=== PATIENT | male | born 2000 | race Caucasian/White ===

== ENCOUNTER 2018-07-19 20:18 | Inpatient (IN) ==
--- NOTE | 2018-07-20 00:17 | ED ---
HPI General Chief complaint: Abdominal Pain Stated complaint: ABD Pain Time Seen by Provider: 07/19/18 23:56 Source: patient Limitations: no limitations History of Present Illness HPI narrative: The patient is a 17 year old male who presents to the [facility] emergency department with a history of having abdominal pain that began on Wednesday. The patient reports that the pain is in the mid epigastric area. The patient reports that he tried taking Pepto-Bismol without any relief. He reports that he had nausea and vomiting on Wednesday associated with this. He reports that he has had 2 episodes of diarrhea. He denies having any blood in his stool or black or tarry stools. He denies having any known sick contacts, foreign travel, or recent antibiotic use. He reports that the pain is a cramping sensation. He reports that initially was coming and going, however now it is constant. He reports that it feels like a tightening sensation today that is gradually getting worse with time. He reports that it is worse with movement. He reports having decreased appetite. He denies having any change in the pain with eating. The patient reports having a subjective fever associated with this. On review of systems otherwise, he denies having any cough, congestion, neck pain, chest pain, shortness of breath, urinary symptoms , or neurologic symptoms. Related Data Home Medications Medication Instructions Recorded Confirmed No Known Home Medications 07/20/18 07/20/18 Previous Rx's Medication Instructions Recorded hydrocodone-acetaminophen [[place]] 1 tab PO Q4H PRN #18 tab 07/21/18 Allergies Allergy/AdvReac Type Severity Reaction Status Date / Time milk Allergy Constipatio Verified 07/19/18 20:57 n Penicillins Allergy Shortness Verified 07/19/18 20:57 of Breath Review of Systems ROS: all other systems reviewed are negative [facility] Medical History Medical History Patient denies medical problems (Acute) Social History Social History Substance History: No History of Abuse Second Hand Smoke Exposure: No Smoking Status: Never smoker How Often Do You Have a Drink Containing Alcohol: 2 to 4 times a month Hx Recent Travel: No Recent Travel in [facility] within the Last 8 Weeks: No Recent Out of Country Travel within the Last 8 Weeks: No Immunization History Tetanus Immunization: Unsure Exam Const General: cooperative, no acute distress and well developed Nutritional Appearance: well nourished Orientation: alert, awake and oriented x3 HENMS Head: normocephalic and atraumatic Nose: no nasal discharge and no epistaxis Mouth: moist mucous membranes Throat: posterior oropharynx normal and uvula midline Eyes Sclera: normal sclerae Pupils: PERRL Neck Neck: no meningeal signs, trachea midline and no JVD Resp Effort & Inspection: no use of accessory muscles Auscultation: clear to auscultation bilaterally Cardio Rate: tachycardic (Sinus tachycardia with a rate in the low 100s, no pulse deficits to the extremities on simultaneous auscultation and palpation of his radial artery.) Rhythm: regular rhythm Heart Sounds: no gallops, no murmurs and no rubs GI Inspection: non-distended Palpation: soft, no hepatosplenomegaly, no guarding, not rigid and tender in the epigastrum and in the RUQ; not in the LLQ, not in the RLQ, not in the LUQ, not periumbilically, not suprapubicly, Asencio's sign negative and with no rebound tenderness Back/Spine/Pelvis Back: no CVA tenderness Skin General: dry skin (warm) Neuro General: alert, awake and oriented x3 Cranial Nerves: other Speech: speech normal Motor: no movement abnormalities noted Extrem General: normal to inspection, no clubbing, no cyanosis and no edema Psych Mood: congruent mood Affect: normal affect Judgment: judgment good Course Reevaluation(s) Reevaluation #1: The patient was reexamined and his pain was controlled. He was updated regarding his results. I explained that the imaging was suspicious for an acute cholecystitis. I explained that he would be admitted for consultation with the surgeon. Consultations Consultation #1: The patient's case including history, pertinent physical examination findings, and laboratory studies were discussed with Dr. Sim. It was agreed that the patient would be admitted to the hospitalist service. Consultation #2: The patient's case including history, pertinent physical examination findings, and laboratory studies were discussed with Dr. Nair, the general surgeon records section supervisor. He explained that he would see the patient in consultation. Initial Documented Vital Signs Temperature 99.6 F 07/19/18 20:52 Pulse Rate 100 H 07/19/18 20:52 Respiratory Rate 16 07/19/18 20:52 Blood Pressure 144/65 H 07/19/18 20:52 Pulse Oximetry 99 07/19/18 20:52 Last Documented Vital Signs Temperature 98.3 F 07/21/18 00:00 Pulse Rate 67 07/21/18 00:00 Respiratory Rate 18 07/21/18 00:00 Blood Pressure 109/59 L 07/21/18 00:00 Pulse Oximetry 95 07/21/18 00:00 Medical Decision Making MDM Narrative Medical decision making narrative: During the course of the patient's emergency department visit, the patient's history, examination, and differential diagnosis were reviewed with the patient. The patient was placed on a business transformation analyst with oximetry and frequent blood pressure monitoring. The patient had IV access obtained and blood work sent for analysis. A diagnostic evaluation was started regarding the patient's abdominal pain. The patient was initially provided Normal saline IV fluids. The patient's diagnostic studies are remarkable for a white count of 8.9, hemoglobin 15.6, platelets 151 74.6 neutrophils, chemistries are remarkable for a glucose of 117, elevated C-reactive protein at 16.6, lipase within normal limits. Urinalysis showed no acute abnormality. PT 11.6, PTT 32.7, CT scan of the abdomen and pelvis revealed findings suspicious for acute cholecystitis. A call was placed out to the surgeon on-call, regarding this patient's case. The patient was provided antibiotic to include Levaquin and Flagyl given his penicillin allergy. The patient's results were discussed with the patient, including the plan of care. I explained that further testing and/ or monitoring is indicated based on the patient's history, examination, and/ or laboratory findings. Therefore, I recommended admission for additional evaluation. The patient expressed understanding and was agreeable with this plan. The patient was admitted to the hospital in stable condition and sent to a bed under the care of [facility] services. Medical Screen Exam Complete: Yes Emergency Medical Condition: Yes Differential Diagnosis Differential Diagnosis: Viral syndrome, versus gastritis, versus peptic ulcer disease, versus pancreatitis, versus gastroenteritis, versus colitis, versus appendicitis, versus pyelonephritis, versus urinary tract infection Medical Records Medical records reviewed: Yes I reviewed the patient's medical records. Lab Data Lab results reviewed: Yes I reviewed the patient's lab results. Result diagrams: 07/21/18 05:47 09/06/18 05:47 Lab Results 07/20/18 07/20/18 07/20/18 Range/Units 00:35 00:45 00:45 WBC 8.9 (4.0-11.0) th/mm3 RBC 4.67 (4.50-5.90) mil/mm3 Hgb 15.6 (13.0-17.0) gm/dL Hct 42.9 (39.0-51.0) % MCV 91.9 (80.0-100.0) fL MCH 33.5 (27.0-34.0) pg MCHC 36.5 H (32.0-36.0) % RDW 12.5 (11.6-17.2) % Plt Count 151 (150-450) th/mm3 MPV 9.3 (7.0-11.0) fL Prelim Diff (Auto) Slide review pending Neut % (Auto) 74.6 H (16.0-70.0) % Lymph % (Auto) 14.4 (9.0-44.0) % [place] % (Auto) 9.4 H (0.0-8.0) % Eos % (Auto) 1.4 (0.0-4.0) % Baso % (Auto) 0.2 (0.0-2.0) % Neut # (Auto) 6.6 (1.8-7.7) th/mm3 Lymph # (Auto) 1.3 (1.0-4.8) th/mm3 [place] # (Auto) 0.8 (0.0-0.9) th/mm3 Eos # (Auto) 0.1 (0.0-0.4) th/mm3 Baso # (Auto) 0.0 (0.0-0.2) th/mm3 WBC Differential . Diff Scan Auto diff confirmed Differential Comment . Platelet Estimate Normal (Normal) Platelet Morphology Normal (Normal) RBC Morphology Normal (Normal) PT 11.3 (9.8-11.6) sec INR 1.1 Ratio APTT 32.7 H (24.3-30.1) sec Sodium (136-145) meq/L Potassium (3.5-5.1) meq/L Chloride (98-107) meq/L Carbon Dioxide (21.0-32.0) meq/L Anion Gap (5-15) meq/L BUN (7-18) mg/dL Creatinine (0.60-1.30) mg/dL Estimated GFR (>89) mL/min Random Glucose (74-106) mg/dL Calcium (8.5-10.1) mg/dL Total Bilirubin (0.2-1.0) mg/dL AST (15-39) U/L ALT (9-52) U/L Alkaline Phosphatase (45-117) U/L C-Reactive Protein (0.00-0.30) mg/dL Total Protein (6.4-8.2) g/dL Albumin (3.4-5.0) g/dL Lipase (73-393) U/L Urine Color Straw (Yellw/Straw) Urine Clarity Clear (Clear) Urine pH 6.0 (5.0-8.5) Ur Specific [place] 1.004 (1.002-1.035) Urine Protein Negative (Neg-Trace) mg/dL Urine Glucose (UA) Negative (Negative) mg/dL Urine Ketones Trace H (Negative) mg/dL Urine Occult Blood Negative (Negative) Urine Nitrate Negative (Negative) Urine Bilirubin Negative (Negative) Urine Urobilinogen Less than 2 (Less than 2) mg/dL Ur Leukocyte Esterase Negative (Negative) Urine RBC Less than 1 (0-3) /hpf Urine WBC Less than 1 (0-5) /hpf Micro UA Comment Culture not ind Ur Microscopic Review Not Reportable Urine Culture Comments Culture not ind 07/20/18 07/21/18 07/21/18 Range/Units 00:45 05:47 05:47 WBC 8.4 (4.0-11.0) th/mm3 RBC 3.92 L (4.50-5.90) mil/mm3 Hgb 13.0 D (13.0-17.0) gm/dL Hct 35.7 L (39.0-51.0) % MCV 91.0 (80.0-100.0) fL MCH 33.0 (27.0-34.0) pg MCHC 36.3 H (32.0-36.0) % RDW 12.3 (11.6-17.2) % Plt Count 152 (150-450) th/mm3 MPV 9.7 (7.0-11.0) fL Prelim Diff (Auto) Slide review pending Neut % (Auto) 81.2 H (16.0-70.0) % Lymph % (Auto) 8.8 L (9.0-44.0) % [place] % (Auto) 9.8 H (0.0-8.0) % Eos % (Auto) 0.0 (0.0-4.0) % Baso % (Auto) 0.2 (0.0-2.0) % Neut # (Auto) 6.8 (1.8-7.7) th/mm3 Lymph # (Auto) 0.7 L (1.0-4.8) th/mm3 [place] # (Auto) 0.8 (0.0-0.9) th/mm3 Eos # (Auto) 0.0 (0.0-0.4) th/mm3 Baso # (Auto) 0.0 (0.0-0.2) th/mm3 WBC Differential . Diff Scan Auto diff confirmed Differential Comment . Platelet Estimate (Normal) Platelet Morphology (Normal) RBC Morphology (Normal) PT (9.8-11.6) sec INR Ratio APTT (24.3-30.1) sec Sodium 137 141 (136-145) meq/L Potassium 3.8 4.2 (3.5-5.1) meq/L Chloride 100 105 (98-107) meq/L Carbon Dioxide 27.2 24.5 (21.0-32.0) meq/L Anion Gap 10 12 (5-15) meq/L BUN 8 8 (7-18) mg/dL Creatinine 0.96 0.73 (0.60-1.30) mg/dL Estimated GFR Greater than 89 Greater than 89 (>89) mL/min Random Glucose 117 H 100 (74-106) mg/dL Calcium 9.1 8.8 (8.5-10.1) mg/dL Total Bilirubin 0.9 0.5 (0.2-1.0) mg/dL AST 16 50 H (15-39) U/L ALT 19 47 (9-52) U/L Alkaline Phosphatase 54 53 (45-117) U/L C-Reactive Protein 16.60 H (0.00-0.30) mg/dL Total Protein 8.2 6.5 D (6.4-8.2) g/dL Albumin 3.9 3.0 L D (3.4-5.0) g/dL Lipase 78 (73-393) U/L Urine Color (Yellw/Straw) Urine Clarity (Clear) Urine pH (5.0-8.5) Ur Specific [place] (1.002-1.035) Urine Protein (Neg-Trace) mg/dL Urine Glucose (UA) (Negative) mg/dL Urine Ketones (Negative) mg/dL Urine Occult Blood (Negative) Urine Nitrate (Negative) Urine Bilirubin (Negative) Urine Urobilinogen (Less than 2) mg/dL Ur Leukocyte Esterase (Negative) Urine RBC (0-3) /hpf Urine WBC (0-5) /hpf Micro UA Comment Ur Microscopic Review Urine Culture Comments Imaging Data Radiologist's impression: Abdomen/Pelvis CT 07/20/18 00:33 CONCLUSION: 1. Abnormal gallbladder with findings highly suggestive of acute cholecystitis. The gallbladder contains stones and demonstrates wall thickening and pericholecystic inflammation and likely hyperemia in the adjacent liver. The inflammatory changes also abut the proximal transverse colon causing mild wall thickening. 2. There is trace free fluid in the pelvis. Discharge Plan Discharge Disposition Patient Disposition: 30 Still Patient Discharge Details Diagnosis: Acute cholecystitis Physicians Team ED Provider: Dorie Gill Primary Care Provider: Primary Care Windy Lawson Attending Provider: Dre Sullivan Other Providers: Hair Myers ; [facility] Inter[facility] Interventions: ED Discharge Assessment Last Done: 07/20/18 05:16 Status ED Status: Left Department Discharge Information Discharge Date/Time: 07/20/18 05:50
[2018-07-20] MEDS ORDERED: Sod Chloride 0.9% Inj 1,000 ML IV.SIG ONE (00:35)
[2018-07-20 00:59] LABS: Baso % (Auto) 0.2 % (0.0-2.0); Eos # (Auto) 0.1 th/mm3 (0.0-0.4); Eos % (Auto) 1.4 % (0.0-4.0); Hematocrit 42.9 % (39.0-51.0); Hemoglobin 15.6 gm/dL (13.0-17.0); Lymph # (Auto) 1.3 th/mm3 (1.0-4.8); Lymph % (Auto) 14.4 % (9.0-44.0); Mean Corpuscular Hemoglobin 33.5 pg (27.0-34.0); Mean Corpuscular Volume 91.9 fL (80.0-100.0); Mean Platelet Volume 9.3 fL (7.0-11.0); Mono # (Auto) 0.8 th/mm3 (0.0-0.9); Mono % (Auto) 9.4 % (0.0-8.0); Neut # (Auto) 6.6 th/mm3 (1.8-7.7); Neut % (Auto) 74.6 % (16.0-70.0); Platelet Count 151 th/mm3 (150-450); Red Blood Count 4.67 mil/mm3 (4.50-5.90); Red Cell Distribution Width 12.5 % (11.6-17.2); White Blood Count 8.9 th/mm3 (4.0-11.0)
[2018-07-20 01:03] LABS: Mean Corpuscular HGB Conc 36.5 % (32.0-36.0)
[2018-07-20 01:17] LABS: Activated Partial Thrombo Time 32.7 sec (24.3-30.1); INR 1.1 Ratio; Prothrombin Time 11.3 sec (9.8-11.6)
[2018-07-20 01:21] LABS: Alanine Aminotransferase 19 U/L (9-52); Albumin 3.9 g/dL (3.4-5.0); Anion Gap 10 meq/L (5-15); Aspartate Aminotransferase 16 U/L (15-39); Blood Urea Nitrogen 8 mg/dL (7-18); Calcium 9.1 mg/dL (8.5-10.1); Carbon Dioxide 27.2 meq/L (21.0-32.0); Chloride 100 meq/L (98-107); Glomerular Filtration Rate Greater Than 89 mL/min (>89); Glucose,Random 117 mg/dL (74-106); Lipase 78 U/L (73-393); Potassium 3.8 meq/L (3.5-5.1); Sodium 137 meq/L (136-145)
[2018-07-20 01:23] LABS: Alkaline Phosphatase 54 U/L (45-117); Total Protein 8.2 g/dL (6.4-8.2)
[2018-07-20] MEDS ORDERED: Ketorolac Inj 30 MG/ML (IVP) Vial IV.PUSH ONE ×2 (01:29→13:00)
[2018-07-20 01:48] LABS: Platelet Estimate Normal (Normal); Platelet Morphology Normal (Normal); RBC Morphology Normal (Normal)
[2018-07-20 01:54] LABS: Bilirubin,Urine Negative (Negative); Clarity,Urine Clear (Clear); Color,Urine Straw (Yellw/Straw); Glucose,Urine (UA) Negative (Negative); Leukocyte Esterase,Urine Negative (Negative); Nitrite,Urine Negative (Negative); Specific Gravity,Urine 1.004 (1.002-1.035)
--- NOTE | 2018-07-20 02:02 | CT ---
EXAM DATE: 07/20/2018 1:53 AM EDT AGE/SEX: 17 years / Male INDICATIONS: Abdomen pain past 4 days. CLINICAL DATA: This is the patient's initial encounter. Patient reports that signs and symptoms have been present for 1 day and indicates a pain score of 6/10. MEDICAL/SURGICAL HISTORY: None. None. ORAL CONTRAST: No oral contrast ingested. RADIATION DOSE: 6.64 CTDI (mGy) COMPARISON: No prior exams available for comparison. TECHNIQUE: Multiple contiguous axial images were obtained through the abdomen and pelvis following b olus infusion of 96 ml Omnipaque 350 (iohexol) nonionic water-soluble contrast as a single exam dos e. No oral contrast ingested. Using automated exposure control and adjustment of the mA and/or kV ac cording to patient size, radiation dose was kept as low as reasonably achievable to obtain optimal di agnostic quality images. DICOM format image data is available electronically for review and comparis on. FINDINGS: Lower chest: No acute abnormality is identified. Hepatobiliary: No focal liver lesion is identified. Hepatic vasculature demonstrates no abnormality. Gallbladder is distended and contains calcified and noncalcified stones. There is gallbladder wall th ickening and mild inflammation in the pericholecystic fat. Inflammation also abuts the proximal trans verse colon. There is no bile duct dilatation. There is mild hyperemia in the liver adjacent to the i nflamed gallbladder. Kidneys: No hydronephrosis, stone, or mass. Adrenal Glands: Within normal limits. Spleen: Within normal limits. Pancreas: Within normal limits. Vascular: The aorta is nonaneurysmal. Bowel/Mesentery: Stomach and small bowel demonstrate no abnormality. Appendix is normal. There is que stionable mild wall thickening of the proximal transverse colon where it abuts the inflamed gallbladd er. There is no free air. Trace free fluid is present in the pelvis. Abdominal Wall: No hernia is visualized. Retroperitoneum: No lymphadenopathy. Bladder: No wall thickening or mass. Reproductive: Within normal limits. Inguinal: No lymphadenopathy or hernia. Musculoskeletal: No acute osseous abnormality is identified. CONCLUSION: 1. Abnormal gallbladder with findings highly suggestive of acute cholecystitis. The gallbladder cont ains stones and demonstrates wall thickening and pericholecystic inflammation and likely hyperemia in the adjacent liver. The inflammatory changes also abut the proximal transverse colon causing mild wa ll thickening. 2. There is trace free fluid in the pelvis. Electronically signed by: Jeet Sloan MD 07/20/2018 2:00 AM EDT
[2018-07-20] MEDS ORDERED: Bisacodyl 10 MG Supp RECTAL PRN (04:39)
[2018-07-20] MEDS: Sod Chloride 0.9% Inj 1,000 ML IV.CONT SCH ×2 (04:55→14:55)
--- NOTE | 2018-07-20 08:09 | P.HP ---
History of Present Illness Primary Care Physician: No Primary Care Physician Inpatient Certification: I certify that the inpatient services were ordered in accordance with Medicare regulations governing the order. This includes certification that hospital inpatient services are reasonable and necessary and in the case of services not specified as inpatient-only under 42 CFR 419.22(n), that they are appropriately provided as inpatient services in accordance to with the 2-midnight benchmark under 43 CFR 412.3(e) Estimated Total Length of Stay (Days): 2 Plans for Post Hospital Care: Home [facility] - History History Provided By: Patient - Medical History Medical History: Medical History (Last Reviewed 07/20/18 @ 01:26 by Dorie Gill MD) Patient denies medical problems - Tobacco History Second Hand Smoke Exposure: No Smoking Status: Never smoker - Alcohol History How Often Do You Have a Drink Containing Alcohol: Monthly or less - Substance Use History Substance History: No History of Abuse - Travel History Recent Travel in the [place] Within the Last 8 Weeks: No Recent Travel Out of the Country Within the Last 8 Weeks: No - Immunization History Tetanus Immunization: Unsure Medications and Allergies Active Medications: Active Medications Al Hydroxide/Mg Hydroxide (Milk Of Magnesia Liq) 30 ml PO Q12H PRN PRN Reason: Mild Constipation Bisacodyl (Dulcolax Supp) 10 mg RECTAL DAILY PRN PRN Reason: SEVERE CONSITIPATION Levofloxacin/Dextrose (Levaquin 750 Mg Premix Inj) 150 mls @ 100 mls/hr IV.SIG Q24H GHISLAINE Metronidazole/Sodium Chloride (Flagyl 500 Mg Inj) 100 mls @ 100 mls/hr IV.SIG Q8H GHISLAINE Sodium Chloride (Ns Inj) 1,000 mls @ 100 mls/hr IV.CONT .Q10H [facility] Last Admin: 07/20/18 04:55 Dose: 100 mls/hr Lactulose (Lactulose Liq) 30 ml PO DAILY PRN PRN Reason: SEVERE CONSITIPATION Morphine Sulfate (Morphine Inj) 4 mg IV.PUSH Q4H PRN PRN Reason: pain 6-10 Ondansetron HCl (Zofran Inj) 4 mg IV.PUSH Q6H PRN PRN Reason: NAUSEA OR VOMITING Senna/Docusate Sodium (Ya-Colace) 1 tab PO BID GHISLAINE Sennosides (Senokot) 17.2 mg PO Q12H PRN PRN Reason: Moderate Constipation Sodium Chloride (Ns Flush) 2 ml IV.FLUSH PRN PRN PRN Reason: FLUSH AFTER USING IV ACCESS Allergies Allergy/AdvReac Type Severity Reaction Status Date / Time milk Allergy Constipatio Verified 07/19/18 20:57 n Penicillins Allergy Shortness Verified 07/19/18 20:57 of Breath Home Medications Medication Instructions Recorded Confirmed Type No Known Home Medications 07/20/18 07/20/18 History Exam Vital signs: Vital Signs 07/19/18 20:52 07/20/18 04:50 07/20/18 05:53 Temperature 99.6 F 99.9 F H Pulse Rate 100 H 79 70 Respiratory Rate 16 18 22 Blood Pressure 144/65 H 114/58 L 113/57 L Pulse Oximetry 99 96 98 07/20/18 07:44 Temperature 99.2 F Pulse Rate 71 Respiratory Rate 20 Blood Pressure 119/56 L Pulse Oximetry 99 Intake & Output 07/19/18 07/20/18 07/20/18 18:59 06:59 18:59 Intake Total 250 / 250 Balance 250 / 250 Weight 77.4 kg Intake: IV 250 / 250 Levaquin 750 mg Premix Inj 150 150 / 150 ML @ 100 mls/hr IV.SIG ONCE ONE Rx#:[id number] NS Inj 1,000 ML @ Wide Open IV. 0 / 0 SIG BOLUS ONE Rx#:[id number] Flagyl 500 MG Inj 100 ML @ 100 100 / 100 mls/hr IV.SIG ONCE ONE Rx#: [id number] Other: Date of Last Bowel Movement 07/19/18 Results - Labs CBC & Chem 7: 07/20/18 00:45 07/20/18 00:45 Labs: Laboratory Results - last 24 hr 07/20/18 07/20/18 07/20/18 00:35 00:45 00:45 WBC 8.9 RBC 4.67 Hgb 15.6 Hct 42.9 MCV 91.9 MCH 33.5 MCHC 36.5 H RDW 12.5 Plt Count 151 MPV 9.3 Prelim Diff (Auto) Slide review pending Neut % (Auto) 74.6 H Lymph % (Auto) 14.4 [place] % (Auto) 9.4 H Eos % (Auto) 1.4 Baso % (Auto) 0.2 Neut # (Auto) 6.6 Lymph # (Auto) 1.3 [place] # (Auto) 0.8 Eos # (Auto) 0.1 Baso # (Auto) 0.0 WBC Differential . Diff Scan Auto diff confirmed Differential Comment . Platelet Estimate Normal Platelet Morphology Normal RBC Morphology Normal PT 11.3 INR 1.1 APTT 32.7 H Sodium Potassium Chloride Carbon Dioxide Anion Gap BUN Creatinine Estimated GFR Random Glucose Calcium Total Bilirubin AST ALT Alkaline Phosphatase C-Reactive Protein Total Protein Albumin Lipase Urine Color Straw Urine Clarity Clear Urine pH 6.0 Ur Specific [place] 1.004 Urine Protein Negative Urine Glucose (UA) Negative Urine Ketones Trace H Urine Occult Blood Negative Urine Nitrate Negative Urine Bilirubin Negative Urine Urobilinogen Less than 2 Ur Leukocyte Esterase Negative Urine RBC Less than 1 Urine WBC Less than 1 Micro UA Comment Culture not ind Ur Microscopic Review Not Reportable Urine Culture Comments Culture not ind 07/20/18 00:45 WBC RBC Hgb Hct MCV MCH MCHC RDW Plt Count MPV Prelim Diff (Auto) Neut % (Auto) Lymph % (Auto) [place] % (Auto) Eos % (Auto) Baso % (Auto) Neut # (Auto) Lymph # (Auto) [place] # (Auto) Eos # (Auto) Baso # (Auto) WBC Differential Diff Scan Differential Comment Platelet Estimate Platelet Morphology RBC Morphology PT INR APTT Sodium 137 Potassium 3.8 Chloride 100 Carbon Dioxide 27.2 Anion Gap 10 BUN 8 Creatinine 0.96 Estimated GFR Greater than 89 Random Glucose 117 H Calcium 9.1 Total Bilirubin 0.9 AST 16 ALT 19 Alkaline Phosphatase 54 C-Reactive Protein 16.60 H Total Protein 8.2 Albumin 3.9 Lipase 78 Urine Color Urine Clarity Urine pH Ur Specific [place] Urine Protein Urine Glucose (UA) Urine Ketones Urine Occult Blood Urine Nitrate Urine Bilirubin Urine Urobilinogen Ur Leukocyte Esterase Urine RBC Urine WBC Micro UA Comment Ur Microscopic Review Urine Culture Comments - Imaging Impressions Abdomen/Pelvis CT 07/20/18 00:33 CONCLUSION: 1. Abnormal gallbladder with findings highly suggestive of acute cholecystitis. The gallbladder contains stones and demonstrates wall thickening and pericholecystic inflammation and likely hyperemia in the adjacent liver. The inflammatory changes also abut the proximal transverse colon causing mild wall thickening. 2. There is trace free fluid in the pelvis. Caprini VTE Risk Assessment Caprini Risk Assessment Model: Point Value = 1 Point Value = 2 Point Value = 3 Point Value = 5 Age 41-60 Minor surgery BMI > 25 kg/m2 Swollen legs Varicose veins or History of unexplained or recurrent spontaneous Oral contraceptives or hormone replacement Sepsis (< 1 month) Serious lung disease, including pneumonia (< 1 month) Abnormal pulmonary function Acute myocardial infarction Congestive heart failure (< 1 month) History of inflammatory bowel disease Medical patient at bed rest Age 61-74 Arthroscopic surgery Major open surgery (> 45 min) Laparoscopic surgery (> 45 min) Malignancy Confined to bed (> 72 hours) Immobilizing plaster cast Central venous access Age >= 75 History of VTE Family history of VTE Factor V Leiden Prothrombin 58030A Lupus anticoagulant Anticardiolipin antibodies Elevated serum homocysteine Heparin-induced thrombocytopenia Other congenital or acquired thrombophilia Stroke (< 1 month) Elective arthroplasty Hip, pelvis, or leg fracture Acute spinal cord injury (< 1 month) Prophylaxis Regimen: Total Risk Factor Score Risk Level Prophylaxis Regimen 0-1 Low Early ambulation 2 Moderate Order ONE of the following: *Sequential Compression Device (SCD) *Heparin 5000 units SQ BID 3-4 Higher Order ONE of the following medications: *Heparin 5000 units SQ TID *Enoxaparin/Lovenox 40 mg SQ daily (WT < 150 kg, CrCl > 30 mL/min) *Enoxaparin/Lovenox 30 mg SQ daily (WT < 150 kg, CrCl > 10-29 mL/min) *Enoxaparin/Lovenox 30 mg SQ BID (WT < 150 kg, CrCl > 30 mL/min) AND/OR *Sequential Compression Device (SCD) 5 or more Highest Order ONE of the following medications: *Heparin 5000 units SQ TID (Preferred with Epidurals) *Enoxaparin/Lovenox 40 mg SQ daily (WT < 150 kg, CrCl > 30 mL/min) *Enoxaparin/Lovenox 30 mg SQ daily (WT < 150 kg, CrCl > 10-29 mL/min) *Enoxaparin/Lovenox 30 mg SQ BID (WT < 150 kg, CrCl > 30 mL/min) AND *Sequential Compression Device (SCD)
[2018-07-20] MEDS: Senna/Docusate Sodium 8.6/50 MG Tablet PO SCH ×2 (08:32→22:00)
--- NOTE | 2018-07-20 08:44 | P.HP ---
History of Present Illness Primary Care Physician: No Primary Care Physician Chief Complaint: Abdominal pain, nausea, vomiting History of Present Illness: This patient is a 17 y/o male with no known significant past medical history. He presented to our emergency department last night with complaints of abdominal pain that began three days ago. He initially had nausea and vomiting. He denies seeing any blood in the vomit. He denies any recent consumption of food that was our of his ordinary routine. He also had diarrhea for two days following his initial symptoms. He denies melenic stools or noticing any blood in the stool. He also had subjective fevers, no chills. After no resolution of his symptoms he came into our emergency department last night. - Diagnosis (1) Acute cholecystitis Inpatient Certification: I certify that the inpatient services were ordered in accordance with Medicare regulations governing the order. This includes certification that hospital inpatient services are reasonable and necessary and in the case of services not specified as inpatient-only under 42 CFR 419.22(n), that they are appropriately provided as inpatient services in accordance to with the 2-midnight benchmark under 43 CFR 412.3(e) Estimated Total Length of Stay (Days): 2 Plans for Post Hospital Care: Home Review of Systems All other systems reviewed negative except as stated in HPI Cardiovascular: Denies chest pain, Denies chest pain at rest, Denies chest pain with activity, Denies excessive sweating, Denies fainting, Denies fast heart rate, Denies foot swelling, Denies generalized swelling, Denies irregular heart rhythm, Denies leg pain with activity, Denies leg sores, Denies leg swelling, Denies lightheadedness, Denies radiating jaw, neck or arm pain, Denies rapid, pounding, or irregular heartbeat, Denies shortness of breath, Denies shortness of breath with activity, Denies shortness of breath when lying down, Denies shortness of breath causing sudden awakening, Denies slow heart rate, Denies other Respiratory: Denies change in phlegm color, Denies chest congestion, Denies cough, Denies coughing up blood, Denies excessive phlegm production, Denies pain on inspiration, Denies pain with cough, Denies shortness of breath, Denies shortness of breath with activity, Denies snoring, Denies stridor, Denies wheezing, Denies other Gastrointestinal: Reports abdominal pain Musculoskeletal: Denies abnormal walking, Denies back pain, Denies body aches, Denies decreased muscle mass, Denies deformity, Denies joint pain, Denies joint swelling, Denies limited joint movement, Denies loss of height, Denies muscle cramps, Denies muscle weakness, Denies neck pain, Denies numbness, Denies radiating pain into limb, Denies stiffness, Denies tingling, Denies other PMFSH - History History Provided By: Patient - Medical / Surgical Hx Neg / Unobtainable Medical Problems Denied: Yes Surgical History: No Previous Surgery - Medical History Medical History: Medical History (Last Updated 07/20/18 @ 08:46 by Orion Nair MD) Patient denies medical problems (Acute) - Tobacco History Second Hand Smoke Exposure: No Tobacco Use In Past 30 Days: No Smoking Status: Never smoker - Alcohol History How Often Do You Have a Drink Containing Alcohol: 2 to 4 times a month - Substance Use History Substance History: No History of Abuse - Travel History History of Recent Travel: No Recent Travel in the [place] Within the Last 8 Weeks: No Recent Travel Out of the Country Within the Last 8 Weeks: No - Immunization History Tetanus Immunization: Unsure Medications and Allergies Active Medications: Active Medications Al Hydroxide/Mg Hydroxide (Milk Of Magnesia Liq) 30 ml PO Q12H PRN PRN Reason: Mild Constipation Bisacodyl (Dulcolax Supp) 10 mg RECTAL DAILY PRN PRN Reason: SEVERE CONSITIPATION Levofloxacin/Dextrose (Levaquin 750 Mg Premix Inj) 150 mls @ 100 mls/hr IV.SIG Q24H [facility] Metronidazole/Sodium Chloride (Flagyl 500 Mg Inj) 100 mls @ 100 mls/hr IV.SIG Q8H [facility] Sodium Chloride (Ns Inj) 1,000 mls @ 100 mls/hr IV.CONT .Q10H [facility] TO [facility] Last Admin: 07/20/18 04:55 Dose: 100 mls/hr Lactulose (Lactulose Liq) 30 ml PO DAILY PRN PRN Reason: SEVERE CONSITIPATION Morphine Sulfate (Morphine Inj) 4 mg IV.PUSH Q4H PRN PRN Reason: pain 6-10 Ondansetron HCl (Zofran Inj) 4 mg IV.PUSH Q6H PRN PRN Reason: NAUSEA OR VOMITING Senna/Docusate Sodium (Ya-Colace) 1 tab PO BID GHISLAINE Sennosides (Senokot) 17.2 mg PO Q12H PRN PRN Reason: Moderate Constipation Sodium Chloride (Ns Flush) 2 ml IV.FLUSH PRN PRN PRN Reason: FLUSH AFTER USING IV ACCESS Allergies Allergy/AdvReac Type Severity Reaction Status Date / Time milk Allergy Constipatio Verified 07/19/18 20:57 n Penicillins Allergy Shortness Verified 07/19/18 20:57 of Breath Home Medications Medication Instructions Recorded Confirmed Type No Known Home Medications 07/20/18 07/20/18 History Exam Vital signs: Vital Signs 07/19/18 20:52 07/20/18 04:50 07/20/18 05:53 Temperature 99.6 F 99.9 F H Pulse Rate 100 H 79 70 Respiratory Rate 16 18 22 Blood Pressure 144/65 H 114/58 L 113/57 L Pulse Oximetry 99 96 98 07/20/18 07:44 Temperature 99.2 F Pulse Rate 71 Respiratory Rate 20 Blood Pressure 119/56 L Pulse Oximetry 99 Intake & Output 07/19/18 07/20/18 07/20/18 18:59 06:59 18:59 Intake Total 250 / 250 Balance 250 / 250 Weight 77.4 kg Intake: IV 250 / 250 Levaquin 750 mg Premix Inj 150 150 / 150 ML @ 100 mls/hr IV.SIG ONCE ONE Rx#:[id number] NS Inj 1,000 ML @ Wide Open IV. 0 / 0 SIG BOLUS ONE Rx#:[id number] Flagyl 500 MG Inj 100 ML @ 100 100 / 100 mls/hr IV.SIG ONCE ONE Rx#: [id number] Other: Date of Last Bowel Movement 07/19/18 - Constitutional no acute distress - Routine HEENT Exam Head: Present: normocephalic, atraumatic Eye: Present: EOMI ENT: Present: mucous membranes moist - Routine Abdominal Exam Present: soft, tenderness - Detailed Abdominal Exam Comments: Tenderness to palpation in the right upper quadrant. - Routine Skin Exam Present: intact - Routine Neurological Exam Present: alert, oriented X3 Results - Labs CBC & Chem 7: 07/20/18 00:45 07/20/18 00:45 Labs: Laboratory Results - last 24 hr 07/20/18 07/20/18 07/20/18 00:35 00:45 00:45 WBC 8.9 RBC 4.67 Hgb 15.6 Hct 42.9 MCV 91.9 MCH 33.5 MCHC 36.5 H RDW 12.5 Plt Count 151 MPV 9.3 Prelim Diff (Auto) Slide review pending Neut % (Auto) 74.6 H Lymph % (Auto) 14.4 Brule % (Auto) 9.4 H Eos % (Auto) 1.4 Baso % (Auto) 0.2 Neut # (Auto) 6.6 Lymph # (Auto) 1.3 Brule # (Auto) 0.8 Eos # (Auto) 0.1 Baso # (Auto) 0.0 WBC Differential . Diff Scan Auto diff confirmed Differential Comment . Platelet Estimate Normal Platelet Morphology Normal RBC Morphology Normal PT 11.3 INR 1.1 APTT 32.7 H Sodium Potassium Chloride Carbon Dioxide Anion Gap BUN Creatinine Estimated GFR Random Glucose Calcium Total Bilirubin AST ALT Alkaline Phosphatase C-Reactive Protein Total Protein Albumin Lipase Urine Color Straw Urine Clarity Clear Urine pH 6.0 Ur Specific [place] 1.004 Urine Protein Negative Urine Glucose (UA) Negative Urine Ketones Trace H Urine Occult Blood Negative Urine Nitrate Negative Urine Bilirubin Negative Urine Urobilinogen Less than 2 Ur Leukocyte Esterase Negative Urine RBC Less than 1 Urine WBC Less than 1 Micro UA Comment Culture not ind Ur Microscopic Review Not Reportable Urine Culture Comments Culture not ind 07/20/18 00:45 WBC RBC Hgb Hct MCV MCH MCHC RDW Plt Count MPV Prelim Diff (Auto) Neut % (Auto) Lymph % (Auto) Brule % (Auto) Eos % (Auto) Baso % (Auto) Neut # (Auto) Lymph # (Auto) Brule # (Auto) Eos # (Auto) Baso # (Auto) WBC Differential Diff Scan Differential Comment Platelet Estimate Platelet Morphology RBC Morphology PT INR APTT Sodium 137 Potassium 3.8 Chloride 100 Carbon Dioxide 27.2 Anion Gap 10 BUN 8 Creatinine 0.96 Estimated GFR Greater than 89 Random Glucose 117 H Calcium 9.1 Total Bilirubin 0.9 AST 16 ALT 19 Alkaline Phosphatase 54 C-Reactive Protein 16.60 H Total Protein 8.2 Albumin 3.9 Lipase 78 Urine Color Urine Clarity Urine pH Ur Specific [place] Urine Protein Urine Glucose (UA) Urine Ketones Urine Occult Blood Urine Nitrate Urine Bilirubin Urine Urobilinogen Ur Leukocyte Esterase Urine RBC Urine WBC Micro UA Comment Ur Microscopic Review Urine Culture Comments - Imaging Impressions Abdomen/Pelvis CT 07/20/18 00:33 CONCLUSION: 1. Abnormal gallbladder with findings highly suggestive of acute cholecystitis. The gallbladder contains stones and demonstrates wall thickening and pericholecystic inflammation and likely hyperemia in the adjacent liver. The inflammatory changes also abut the proximal transverse colon causing mild wall thickening. 2. There is trace free fluid in the pelvis. Caprini VTE Risk Assessment Caprini VTE Risk Assessment: No/Low Risk (score <= 1) Caprini Risk Assessment Model: Point Value = 1 Point Value = 2 Point Value = 3 Point Value = 5 Age 41-60 Minor surgery BMI > 25 kg/m2 Swollen legs Varicose veins or History of unexplained or recurrent spontaneous Oral contraceptives or hormone replacement Sepsis (< 1 month) Serious lung disease, including pneumonia (< 1 month) Abnormal pulmonary function Acute myocardial infarction Congestive heart failure (< 1 month) History of inflammatory bowel disease Medical patient at bed rest Age 61-74 Arthroscopic surgery Major open surgery (> 45 min) Laparoscopic surgery (> 45 min) Malignancy Confined to bed (> 72 hours) Immobilizing plaster cast Central venous access Age >= 75 History of VTE Family history of VTE Factor V Leiden Prothrombin [id number] Lupus anticoagulant Anticardiolipin antibodies Elevated serum homocysteine Heparin-induced thrombocytopenia Other congenital or acquired thrombophilia Stroke (< 1 month) Elective arthroplasty Hip, pelvis, or leg fracture Acute spinal cord injury (< 1 month) Prophylaxis Regimen: Total Risk Factor Score Risk Level Prophylaxis Regimen 0-1 Low Early ambulation 2 Moderate Order ONE of the following: *Sequential Compression Device (SCD) *Heparin 5000 units SQ BID 3-4 Higher Order ONE of the following medications: *Heparin 5000 units SQ TID *Enoxaparin/Lovenox 40 mg SQ daily (WT < 150 kg, CrCl > 30 mL/min) *Enoxaparin/Lovenox 30 mg SQ daily (WT < 150 kg, CrCl > 10-29 mL/min) *Enoxaparin/Lovenox 30 mg SQ BID (WT < 150 kg, CrCl > 30 mL/min) AND/OR *Sequential Compression Device (SCD) 5 or more Highest Order ONE of the following medications: *Heparin 5000 units SQ TID (Preferred with Epidurals) *Enoxaparin/Lovenox 40 mg SQ daily (WT < 150 kg, CrCl > 30 mL/min) *Enoxaparin/Lovenox 30 mg SQ daily (WT < 150 kg, CrCl > 10-29 mL/min) *Enoxaparin/Lovenox 30 mg SQ BID (WT < 150 kg, CrCl > 30 mL/min) AND *Sequential Compression Device (SCD) Assessment and Plan - Assessment (1) Acute cholecystitis Code(s): K81.0 - Acute cholecystitis Status: Acute - Plan This is a 17 y/o Male patient who has had abdominal pain over the past 3 days. He presented to our ED last night. Imaging of the abdomen shows finding consistent with acute cholecystitis. Patient is currently on iv fluids, iv antibiotics, and is scheduled for surgery today. We will continue with Zofran for nausea as needed. He will be kept NPO for laparoscopic cholecystectomy.
--- NOTE | 2018-07-20 08:49 | P.CONGS ---
[facility] Gen Surgery Consult Note Consult date: 07/20/18 Reason for consult: gallstones (This is an otherwise healthy 17-year-old male who a great deal of fatty foods on James night began experiencing abdominal pain nausea and emesis. Presented to emergency room for evaluation was found a CT scan with abnormal gallbladder consistent with cholecystitis. He was placed in the hospital on antibiotics and a surgical consultation was requested. Patient has no prior history of abdominal surgery.) Review of Systems No fevers chills. Normal bowel and bladder function. All other systems reviewed negative except as stated in [facility] - History History Provided By: Patient - Medical / Surgical Hx Neg / Unobtainable Medical Problems Denied: Yes Surgical History: No Previous Surgery - Medical History Medical History: Medical History (Last Reviewed 07/20/18 @ 01:26 by Dorie Gill MD) Patient denies medical problems - Tobacco History Second Hand Smoke Exposure: No Tobacco Use In Past 30 Days: No Smoking Status: Never smoker - Alcohol History How Often Do You Have a Drink Containing Alcohol: Monthly or less - Substance Use History Substance History: No History of Abuse - Travel History Recent Travel in the [place] Within the Last 8 Weeks: No Recent Travel Out of the Country Within the Last 8 Weeks: No - Immunization History Tetanus Immunization: Unsure Medications and Allergies Active Medications: Active Medications Al Hydroxide/Mg Hydroxide (Milk Of Magnesia Liq) 30 ml PO Q12H PRN PRN Reason: Mild Constipation Bisacodyl (Dulcolax Supp) 10 mg RECTAL DAILY PRN PRN Reason: SEVERE CONSITIPATION Levofloxacin/Dextrose (Levaquin 750 Mg Premix Inj) 150 mls @ 100 mls/hr IV.SIG Q24H [facility] Metronidazole/Sodium Chloride (Flagyl 500 Mg Inj) 100 mls @ 100 mls/hr IV.SIG Q8H [facility] Sodium Chloride (Ns Inj) 1,000 mls @ 100 mls/hr IV.CONT .Q10H [facility] Last Admin: 07/20/18 04:55 Dose: 100 mls/hr Lactulose (Lactulose Liq) 30 ml PO DAILY PRN PRN Reason: SEVERE CONSITIPATION Morphine Sulfate (Morphine Inj) 4 mg IV.PUSH Q4H PRN PRN Reason: pain 6-10 Ondansetron HCl (Zofran Inj) 4 mg IV.PUSH Q6H PRN PRN Reason: NAUSEA OR VOMITING Senna/Docusate Sodium (Ya-Colace) 1 tab PO BID [facility] Last Admin: 07/20/18 08:32 Dose: Not Given Sennosides (Senokot) 17.2 mg PO Q12H PRN PRN Reason: Moderate Constipation Sodium Chloride (Ns Flush) 2 ml IV.FLUSH PRN PRN PRN Reason: FLUSH AFTER USING IV ACCESS Allergies Allergy/AdvReac Type Severity Reaction Status Date / Time milk Allergy Constipatio Verified 07/19/18 20:57 n Penicillins Allergy Shortness Verified 07/19/18 20:57 of Breath Home Medications Medication Instructions Recorded Confirmed Type No Known Home Medications 07/20/18 07/20/18 History Exam Vital signs: Vital Signs 07/19/18 20:52 07/20/18 04:50 07/20/18 05:53 Temperature 99.6 F 99.9 F H Pulse Rate 100 H 79 70 Respiratory Rate 16 18 22 Blood Pressure 144/65 H 114/58 L 113/57 L Pulse Oximetry 99 96 98 07/20/18 07:44 Temperature 99.2 F Pulse Rate 71 Respiratory Rate 20 Blood Pressure 119/56 L Pulse Oximetry 99 Intake & Output 07/19/18 07/20/18 07/20/18 18:59 06:59 18:59 Intake Total 250 / 250 Balance 250 / 250 Weight 77.4 kg Intake: IV 250 / 250 Levaquin 750 mg Premix Inj 150 150 / 150 ML @ 100 mls/hr IV.SIG ONCE ONE Rx#:[id number] NS Inj 1,000 ML @ Wide Open IV. 0 / 0 SIG BOLUS ONE Rx#:[id number] Flagyl 500 MG Inj 100 ML @ 100 100 / 100 mls/hr IV.SIG ONCE ONE Rx#: [id number] Other: Date of Last Bowel Movement 07/19/18 07/19/18 Narrative: Well-developed well-nourished young man in no acute distress. He is bearded. His HEENT is normocephalic atraumatic pupils are equal round reactive to light. Sclera nonicteric oropharynx is clear without mucosal lesions. Neck is supple without adenopathy. Trachea is midline. His lungs are clear and equal anteriorly bilaterally his heart sounds are regular without murmur rub or gallop. Abdomen is soft it is nondistended he has active bowel sounds. Is tender to palpation in the right upper quadrant and right mid abdomen. There is no rebound or guarding. There are no scars or obvious hernias. Genital rectal exams were deferred. Extremities extremities show no cyanosis clubbing or edema. He is good equal radial pulses. Neurologically he is awake alert and oriented with equal strong bilateral bear keeper strength and no gross motor or sensory deficit. He is accompanied by his mother. Results - Labs 07/20/18 00:45 07/20/18 00:45 Abnormal lab results 07/20/18 07/20/18 07/20/18 Range/Units 00:35 00:45 00:45 MCHC 36.5 H (32.0-36.0) % Neut % (Auto) 74.6 H (16.0-70.0) % [place] % (Auto) 9.4 H (0.0-8.0) % APTT 32.7 H (24.3-30.1) sec Random Glucose (74-106) mg/dL C-Reactive Protein (0.00-0.30) mg/dL Urine Ketones Trace H (Negative) mg/dL 07/20/18 Range/Units 00:45 MCHC (32.0-36.0) % Neut % (Auto) (16.0-70.0) % [place] % (Auto) (0.0-8.0) % APTT (24.3-30.1) sec Random Glucose 117 H (74-106) mg/dL C-Reactive Protein 16.60 H (0.00-0.30) mg/dL Urine Ketones (Negative) mg/dL Diabetes panel 07/20/18 Range/Units 00:45 Sodium 137 (136-145) meq/L Potassium 3.8 (3.5-5.1) meq/L Chloride 100 (98-107) meq/L Carbon Dioxide 27.2 (21.0-32.0) meq/L BUN 8 (7-18) mg/dL Creatinine 0.96 (0.60-1.30) mg/dL Calcium 9.1 (8.5-10.1) mg/dL AST 16 (15-39) U/L ALT 19 (9-52) U/L Alkaline Phosphatase 54 (45-117) U/L Total Protein 8.2 (6.4-8.2) g/dL Albumin 3.9 (3.4-5.0) g/dL Calcium panel 07/20/18 Range/Units 00:45 Calcium 9.1 (8.5-10.1) mg/dL Albumin 3.9 (3.4-5.0) g/dL Pituitary panel 07/20/18 Range/Units 00:45 Sodium 137 (136-145) meq/L Potassium 3.8 (3.5-5.1) meq/L Chloride 100 (98-107) meq/L Carbon Dioxide 27.2 (21.0-32.0) meq/L BUN 8 (7-18) mg/dL Creatinine 0.96 (0.60-1.30) mg/dL Calcium 9.1 (8.5-10.1) mg/dL Adrenal panel 07/20/18 Range/Units 00:45 Sodium 137 (136-145) meq/L Potassium 3.8 (3.5-5.1) meq/L Chloride 100 (98-107) meq/L Carbon Dioxide 27.2 (21.0-32.0) meq/L BUN 8 (7-18) mg/dL Creatinine 0.96 (0.60-1.30) mg/dL Calcium 9.1 (8.5-10.1) mg/dL Total Bilirubin 0.9 (0.2-1.0) mg/dL AST 16 (15-39) U/L ALT 19 (9-52) U/L Alkaline Phosphatase 54 (45-117) U/L Total Protein 8.2 (6.4-8.2) g/dL Albumin 3.9 (3.4-5.0) g/dL All other labs normal. - Imaging CT scan - abdomen: report reviewed, image reviewed (Findings consistent with acute calculus cholecystitis.) Assessment and Plan - Plan 17-year-old with findings consistent with acute cholecystitis. Recommendations were made for laparoscopic cholecystectomy. The procedure in detail plus risks of bleeding infection injury to intra-abdominal contents including liver bile duct or bowel possible open surgery DVT pulmonary and was not expectations for recovery were reviewed in detail the patient and his mother. They agreed with plans to proceed. I talked to the operating room about availability. They have added the case on to follow with Dr. Yoan Monroy. This should occur around noon today. Surgical consent was filled out by me. Patient is on antibiotics and does not require further antibiotics. Sequential compression hose should be used. Code Status: Full code Discussed Condition With: Discussed with patient, mother, bedside nurse, Aj OR.
[2018-07-20] MEDS: Morphine Inj 4 MG/ML Vial IV.PUSH PRN (09:25)
[2018-07-20] MEDS ORDERED: Chlorhexidine Gluconate 2% 1 Pack (2 Cloths) TOPICAL ONE (09:40)
[2018-07-20] MEDS ORDERED: Metoprolol Tartrate 25 MG Tablet PO ONE (09:40)
[2018-07-20] MEDS ORDERED: Sodium Chlor 0.9% Inj 500 ML IV.SIG SCH (10:00)
[2018-07-20] MEDS ORDERED: fentaNYL Citrate Inj 250 MCG/5 ML Ampul ONE (11:33)
[2018-07-20] MEDS ORDERED: Bupivacaine/Epinephrine 0.5% Inj 50 ML Vial ONE (12:11)
[2018-07-20] MEDS ORDERED: Levofloxacin 500 mg Premix Inj 500 MG/100 ML PIGGYBACK IV.SIG ONE (13:00)
[2018-07-20] MEDS ORDERED: Succinylcholine Inj 100 MG/5 ML Syringe IV.PUSH ONE (13:00)
[2018-07-20] MEDS ORDERED: Glycopyrrolate Inj 1 MG/5 ML Syringe IV.PUSH ONE (13:00)
[2018-07-20] MEDS ORDERED: Lidocaine PF 1% Inj 5 ML Syringe INFILTRATN ONE (13:00)
[2018-07-20] MEDS ORDERED: Neostigmine Inj 5 MG/5 ML Syringe IV.PUSH ONE (13:00)
--- NOTE | 2018-07-20 13:02 | P.OP ---
- Preoperative Diagnosis (1) Acute cholecystitis - Postoperative Diagnosis (1) Acute cholecystitis Date of procedure: 07/20/18 Procedure: lap annabelle Anesthesia: GETA Surgeon: Yoan Monroy MD Estimated blood loss (mL): 5 Pathology: other (gallbladder) Operation and Findings: inflamed gallbladder
[2018-07-21] MEDS: Sod Chloride 0.9% Inj 1,000 ML IV.CONT SCH (02:03)
[2018-07-21] MEDS: Morphine Inj 4 MG/ML Vial IV.PUSH PRN ×2 (02:04→10:26)
[2018-07-21 07:35] LABS: Baso % (Auto) 0.2 % (0.0-2.0); Hematocrit 35.7 % (39.0-51.0); Lymph # (Auto) 0.7 th/mm3 (1.0-4.8); Lymph % (Auto) 8.8 % (9.0-44.0); Mean Platelet Volume 9.7 fL (7.0-11.0); Mono # (Auto) 0.8 th/mm3 (0.0-0.9); Mono % (Auto) 9.8 % (0.0-8.0); Neut # (Auto) 6.8 th/mm3 (1.8-7.7); Neut % (Auto) 81.2 % (16.0-70.0); Platelet Count 152 th/mm3 (150-450); Red Blood Count 3.92 mil/mm3 (4.50-5.90); Red Cell Distribution Width 12.3 % (11.6-17.2); White Blood Count 8.4 th/mm3 (4.0-11.0)
[2018-07-21 07:41] LABS: Mean Corpuscular HGB Conc 36.3 % (32.0-36.0)
[2018-07-21 08:00] LABS: Alanine Aminotransferase 47 U/L (9-52); Anion Gap 12 meq/L (5-15); Aspartate Aminotransferase 50 U/L (15-39); Blood Urea Nitrogen 8 mg/dL (7-18); Calcium 8.8 mg/dL (8.5-10.1); Carbon Dioxide 24.5 meq/L (21.0-32.0); Chloride 105 meq/L (98-107); Glomerular Filtration Rate Greater Than 89 mL/min (>89); Glucose,Random 100 mg/dL (74-106); Potassium 4.2 meq/L (3.5-5.1); Sodium 141 meq/L (136-145)
[2018-07-21 08:03] LABS: Alkaline Phosphatase 53 U/L (45-117); Total Protein 6.5 g/dL (6.4-8.2)
--- NOTE | 2018-07-21 10:03 | P.PNGS ---
Subjective Interval history: Doing well Feels hungry Physical Exam Vital signs: Vital Signs 07/20/18 14:35 07/20/18 14:45 07/20/18 15:00 Temperature 98 F Pulse Rate 80 73 73 Respiratory Rate 19 18 18 Blood Pressure 117/57 L 104/52 L 105/53 L Pulse Oximetry 100 99 98 07/20/18 15:15 07/20/18 15:30 07/20/18 15:45 Temperature 98.6 F Pulse Rate 83 77 84 Respiratory Rate 16 14 18 Blood Pressure 115/59 L 113/56 L 111/56 L Pulse Oximetry 100 99 96 07/20/18 20:00 07/21/18 00:00 Temperature 98.1 F 98.3 F Pulse Rate 62 67 Respiratory Rate 16 18 Blood Pressure 105/51 L 109/59 L Pulse Oximetry 92 L 95 Intake & Output 07/20/18 07/21/18 07/21/18 18:59 06:59 18:59 Intake Total 1200 / 1200 1250 / 1250 100 / 100 Output Total 620 / 620 900 / 900 Balance 580 / 580 350 / 350 100 / 100 Weight 79.8 kg Intake: IV 1200 / 1200 1250 / 1250 100 / 100 NS Inj 1,000 ML @ 100 mls/hr IV 1000 / 1000 1000 / 1000 .CONT .Q10H [facility] Rx#:[id number] Levaquin 500 mg Premix Inj 500 100 / 100 mg In 100 ml @ 0 mls/hr IV.SIG .STK-MED ONE Rx#:[id number] Levaquin 750 mg Premix Inj 150 150 / 150 ML @ 100 mls/hr IV.SIG Q24H [facility] Rx#:[id number] Flagyl 500 MG Inj 100 ML @ 100 100 / 100 100 / 100 100 / 100 mls/hr IV.SIG Q8H [facility] Rx#: [id number] Output: Urine 600 / 600 900 / 900 Estimated Blood Loss 20 / 20 Other: Date of Last Bowel Movement 07/19/18 Narrative: Alert and awake Abd: soft; minimally tender; lap sites c/d/i with Steri Strips in place Assessment and Plan - Assessment (1) Acute cholecystitis Code(s): K81.0 - Acute cholecystitis Status: Acute Plan: 17 year old male POD1 lap annabelle -DC fluids -Advance diet -Added [place] for pain control -If pain controlled and able to tolerate a regular diet okay to DC home this afternoon -[place] Rx on chart -Okay to shower this evening--- pat incisions dry -No heavy pushing/pulling/lifting -No bath tubs/swimming pool/beach until office visit -Follow up with Dr. Monroy Jul 29 at 11:40AM - Attending Attestation patient seen at bedside doing well reg diet d/c planning today The exam, history, and the medical decision-making described in the above note were completed with the assistance of the mid-level provider. I reviewed and agree with the findings presented. I attest that I had a [id number] encounter with the patient on the same day, and personally performed and documented my assessment and findings in the medical record.
[2018-07-21] MEDS: Senna/Docusate Sodium 8.6/50 MG Tablet PO SCH (10:12)
--- NOTE | 2018-07-21 11:15 | P.DS ---
Date of admission: 07/20/18 04:22 Primary care physician: No Primary Care Physician Attending physician on discharge: Dre Sullivan Anticipated date of discharge: 07/21/18 Brief History from admission: This patient is a 17 y/o male with no known significant past medical history. He presented to our emergency department with complaints of abdominal pain that began three days ago after eating hamburger and pizza. He initially had nausea and vomiting. He denies seeing any blood in the vomit. He also had diarrhea for two days following his initial symptoms. He denies melenic stools or noticing any blood in the stool. He also had subjective fevers, no chills. DS: Diagnosis - Discharge Diagnosis (1) Acute cholecystitis Status: Acute (2) S/P laparoscopic cholecystectomy Status: Acute DS: Medications - Discharge Medications Prescriptions: hydrocodone-acetaminophen [Rhodelia] 1 tab PO Q4H PRN #18 tab PRN Reason: acute post op pain exception DS: Summary Hospital Course: Patient is a 17 y/o male with no known significant past medical history. He was admitted for acute cholecystitis status post lap scopic cholecystectomy. Patient being seen for a follow-up and discharge planning status post cholecystectomy. Patient laying in bed with family at bedside. Patient without acute distress with slight complain of pain on the surgical site. Pain at 3 out of 10 scale without radiation, stated he just had pain medication morphine the nurse gave recently. Patient tolerating p.o. fluids. Patient states had not eat breakfast yet, awaiting for the order. Discussed plan to discharge when tolerating diet. Patient encouraged to ambulate and out of bed. - Time Spent with Patient Total time spent providing and/or coordinating discharge services: Less than 30 minutes (encourage ambulation) - Quality: VTE Deep Vein Thrombosis/Pulmonary Embolism Present on Admission: No Exam Vital signs: Vital Signs 07/20/18 14:35 07/20/18 14:45 07/20/18 15:00 Temperature 98 F Pulse Rate 80 73 73 Respiratory Rate 19 18 18 Blood Pressure 117/57 L 104/52 L 105/53 L Pulse Oximetry 100 99 98 07/20/18 15:15 07/20/18 15:30 07/20/18 15:45 Temperature 98.6 F Pulse Rate 83 77 84 Respiratory Rate 16 14 18 Blood Pressure 115/59 L 113/56 L 111/56 L Pulse Oximetry 100 99 96 07/20/18 20:00 07/21/18 00:00 Temperature 98.1 F 98.3 F Pulse Rate 62 67 Respiratory Rate 16 18 Blood Pressure 105/51 L 109/59 L Pulse Oximetry 92 L 95 Intake & Output 07/20/18 07/21/18 07/21/18 18:59 06:59 18:59 Intake Total 1200 / 1200 1250 / 1250 1100 / 1100 Output Total 620 / 620 900 / 900 Balance 580 / 580 350 / 350 1100 / 1100 Weight 79.8 kg Intake: IV 1200 / 1200 1250 / 1250 1100 / 1100 NS Inj 1,000 ML @ 100 mls/hr IV 1000 / 1000 1000 / 1000 .CONT .Q10H [facility] Rx#:[id number] LR 1000 mL Inj 1,000 ML @ 30 1000 / 1000 mls/hr IV.SIG .Q24H [facility] Rx#: [id number] Levaquin 500 mg Premix Inj 500 100 / 100 mg In 100 ml @ 0 mls/hr IV.SIG .[facility] Rx#:[id number] Levaquin 750 mg Premix Inj 150 150 / 150 ML @ 100 mls/hr IV.SIG Q24H [facility] Rx#:[id number] Flagyl 500 MG Inj 100 ML @ 100 100 / 100 100 / 100 100 / 100 mls/hr IV.SIG Q8H [facility] Rx#: [id number] Output: Urine 600 / 600 900 / 900 Estimated Blood Loss 20 Other: Date of Last Bowel Movement 07/19/18 Narrative: GENERAL: no acute distress, well nourished, SKIN: abdominal lap incision with steri strips x 4, clean, dry and Intact HEAD: Atraumatic. Normocephalic. EYES: Pupils equal and round. No scleral icterus. No injection or drainage. ENT: No nasal bleeding or discharge. Mucous membranes pink and moist. NECK: Trachea midline. No JVD. CARDIOVASCULAR: Regular rate and rhythm. RESPIRATORY: No accessory muscle use. Clear to auscultation. Breath sounds equal bilaterally. GASTROINTESTINAL: Abdomen soft, slight tenderness, nondistended, Lap incision sites x 4 intact, without signs of infection. Hepatic and splenic margins not palpable. MUSCULOSKELETAL: Extremities without clubbing, cyanosis, or edema. No obvious deformities. NEUROLOGICAL: Awake and alert. No obvious cranial nerve deficits. Motor grossly within normal limits. Five out of 5 muscle strength in the arms and legs. Normal speech. PSYCHIATRIC: Appropriate mood and affect; insight and judgment normal. Results Procedures completed during hospitalization: s/p Lap cholecystectomy Labs on day of discharge: Labs from last 24 hours 07/21/18 07/21/18 05:47 05:47 WBC 8.4 RBC 3.92 L Hgb 13.0 D Hct 35.7 L MCV 91.0 MCH 33.0 MCHC 36.3 H RDW 12.3 Plt Count 152 MPV 9.7 Prelim Diff (Auto) Slide review pending Neut % (Auto) 81.2 H Lymph % (Auto) 8.8 L Holt % (Auto) 9.8 H Eos % (Auto) 0.0 Baso % (Auto) 0.2 Neut # (Auto) 6.8 Lymph # (Auto) 0.7 L Holt # (Auto) 0.8 Eos # (Auto) 0.0 Baso # (Auto) 0.0 WBC Differential . Diff Scan Auto diff confirmed Differential Comment . Sodium 141 Potassium 4.2 Chloride 105 Carbon Dioxide 24.5 Anion Gap 12 BUN 8 Creatinine 0.73 Estimated GFR Greater than 89 Random Glucose 100 Calcium 8.8 Total Bilirubin 0.5 AST 50 H ALT 47 Alkaline Phosphatase 53 Total Protein 6.5 D Albumin 3.0 L D - Impressions ITS Impressions Abdomen/Pelvis CT 07/20/18 00:33 CONCLUSION: 1. Abnormal gallbladder with findings highly suggestive of acute cholecystitis. The gallbladder contains stones and demonstrates wall thickening and pericholecystic inflammation and likely hyperemia in the adjacent liver. The inflammatory changes also abut the proximal transverse colon causing mild wall thickening. 2. There is trace free fluid in the pelvis. Discharge Plan - Discharge Disposition Patient Disposition: 01 Discharge Home - Discharge Condition Condition: Fair - Discharge Order Discharge Orders: Discharge Order (Routine); Ordered 07/21/18 Ordered By: Marilu Kumar [place] - Physicians Team Primary Care Provider: Primary Care Physici,Windy Attending Provider: Dre Sullivan Other Providers: Hair Myers MD ; Surgeons,[facility]
[2018-07-21 14:04] VITALS: BP 107/53; PULSE 88; RESP 18; TEMP 98.2; O2SAT 96
--- NOTE | 2018-08-16 07:37 | MP ---
cc: Yoan Monroy MD DATE OF OPERATION: 07/20/2018 PREOPERATIVE DIAGNOSIS: Acute cholecystitis with cholelithiasis. POSTOPERATIVE DIAGNOSIS: Acute cholecystitis with cholelithiasis. PROCEDURE PERFORMED: Laparoscopic cholecystectomy. SURGEON: Yoan Monroy MD. ACID CONDITIONER: See OR sheet. ANESTHESIA: GETA. IV FLUIDS: See anesthesia sheet. ESTIMATED BLOOD LOSS: 10 mL. DRAINS: None. COMPLICATIONS: None. WOUND CLASSIFICATION: Clean, contaminated. SPECIMENS: Gallbladder. FINDINGS: Acutely distended, inflamed gallbladder with adhesions. Thickened gallbladder wall, multiple gallstones. INDICATIONS: The patient is a 17-year-old male, who presents with acute onset abdominal pain. The pain started James, continued to get worse right upper quadrant. CT findings consistent with acute cholecystitis. Decision for operative intervention. DETAILS OF PROCEDURE: The patient was taken to the operating suite, placed in supine position, prepped and draped in the usual sterile fashion after induction of general endotracheal anesthesia. Timeout done, citing the correct patient, procedure, and surgical site. We were all in agreement with this. Attention first directed to the umbilicus where local anesthetic was injected. Stab gauri incision was made. The Visiport Optiview 5 mm was entered into the abdomen safely, without evidence of injury. Abdomen insufflated to 15-mm pneumoperitoneum. Three other ports were placed, including a 12-mm epigastric, followed by two 5-mm right subcostal. The patient was placed in reverse Trendelenburg, airplaned to the left. The gallbladder was located. There was noted to be omental attachments obstructing the gallbladder. These were bluntly taken down and hook electro Bovie cautery was used. The fundus was very distended and indurated. Therefore, needle decompression was needed for Endo Needle, with aspiration of 100 mL of straw-colored bile. The gallbladder fundus was grasped and retracted cephalad. The cystic duct and cystic artery were dissected meticulously. Again, noted some inflammation and induration stranding. The cystic duct was identified and 3 clips were placed proximal and distal. Endo Marguerite used to transect this. Cystic artery was also done to identify. These were the only 2 structures in the gallbladder, 2 clips placed proximal and distal. Endo Marguerite used to transect this. The gallbladder was removed from the gallbladder fossa using hook electro Bovie cautery. Gallbladder was placed in the Endo Catch Bag. Multiple gallstones were very large. The epigastric incision was extended slightly in order to facilitate removal of the gallbladder. Suction irrigation done until effluent was clear. Electro Bovie cautery done to the gallbladder fossa. No evidence of biliary leaking and hemostasis noted. The patient was then placed flat. Pneumoperitoneum was removed. The epigastric port was closed with 0 Vicryl in [id number] fashion to the fascia and 4-0 Monocryl done to all subcuticular incisions. A sterile dressing including Mastisol and Steri-Strips were placed. The patient tolerated the procedure well. All lap and instrument counts were correct at the end of the procedure. The patient was extubated and taken stable to PACU. No complications. MD LATRELL Escobedo/giuseppe , 04:48 PM , 05:00 PM
== END 2018-07-21 16:29 | disposition home or self-care (01) ==
LOC: NEPE 20:18 → NEDA 07-20 04:22 → NEPFCDU 07-20 05:37 → N07 07-20 11:47
PROVIDERS: ADMIT Internal Medicine; ATTEND Internal Medicine